=== PATIENT | male | born 1990 | race African-American/Black ===

== ENCOUNTER 2017-05-08 19:08 | Emergency (ER) | payer SELFPAY ==
[~2017-05-08] VITALS: Ht 188 cm; Wt 75.0 kg
[2017-05-08] MEDS ORDERED: IBUPROFEN 600MG TABLET PO ONE (23:15)
[2017-05-08 23:16] VITALS: BP 118/57
== END 2017-05-08 23:38 | disposition home or self-care (01) ==
LOC: ER 19:08
DX: N64.4 Mastodynia (principal); R07.89 Other chest pain; R00.1 Bradycardia, unspecified; N63.0 Unspecified lump in unspecified breast; F12.90 Cannabis use, unspecified, uncomplicated
CPT/HCPCS: 71045; 93005; 99284; Z7610

== ENCOUNTER 2022-01-20 04:25 | Emergency (ER) | payer MEDICAID ==
[~2022-01-20] VITALS: Ht 188 cm; Wt 75.0 kg
[2022-01-20] MEDS ORDERED: ONDANSETRON HCL 4MG TABLET PO ONE (06:00)
[2022-01-20] MEDS ORDERED: ACETAMINOPHEN 325MG TABLET PO ONE (06:00)
[2022-01-20] MEDS ORDERED: ONDA4TAB50 PO (07:15)
[2022-01-20] MEDS ORDERED: TOPUD PO (07:15)
[2022-01-20] MEDS ORDERED: FLUT16SP15 BOTHNSTRLS (07:15)
[2022-01-20 07:21] VITALS: BP 108/78
== END 2022-01-20 07:20 | disposition home or self-care (01) ==
LOC: ER 04:25
DX: B34.9 Viral infection, unspecified (principal); Z20.822 Contact with and (suspected) exposure to COVID-19
CPT/HCPCS: 71045; 87426; 87804; 93005; 99285; C9803; Q0162